=== PATIENT | female | born 1965 | race Hispanic/Latino ===

== ENCOUNTER 2017-06-29 18:40 | Emergency (ER) | payer MEDICARE ==
[~2017-06-29 18:40] MED LIST: LOMO PO; ONDA22I IM; PANT40TA25 PO
[2017-06-29 19:11] LABS: BASOPHILS % (AUTO) 0.5 % (0.0-5.0); EOSINOPHILS % (AUTO) 2.5 % (0.0-8.0); HEMATOCRIT 42.7 % (36-48); LYMPHOCYTES % (AUTO) 33.2 % (21.0-51.0); MEAN CORPUSCULAR HEMOGLOBIN 31.7 pg (27.0-33.0); MEAN CORPUSCULAR HGB CONC 35.3 g/dL (32.0-36.0); MEAN CORPUSCULAR VOLUME 89.9 fL (79-99); MONOCYTES % (AUTO) 7.2 % (3.0-13.0); NEUTROPHILS % (AUTO) 56.6 % (40.0-77.0); PLATELET COUNT (AUTO) 237 K/uL (130-400); RED BLOOD CELL COUNT(AUTO) 4.75 MIL/uL (4.00-5.50); RED CELL DISTRIBUTION WIDTH 13.2 % (11.0-15.5); WHITE BLOOD COUNT (AUTO) 6.2 K/uL (4.8-10.8)
[2017-06-29 19:19] LABS: CREATININE 0.9 mg/dL (0.5-1.5); POTASSIUM 3.5 mmol/L (3.5-5.1)
[2017-06-29 19:24] LABS: BILIRUBIN,TOTAL 0.6 mg/dL (0.2-1.0); TOTAL PROTEIN, SERUM 7.9 g/dL (6.0-8.3)
[2017-06-29] MEDS ORDERED: ONDANSETRON ODT 4 MG TAB ONE (19:32)
[2017-06-29] MEDS ORDERED: LIDOCAINE HCL 2% VISCOUS 15 ML UDCUP ONE (19:33)
[2017-06-29] MEDS ORDERED: MAG HYDROX/AL HYDROX/SIMETH ES 30 ML SUSP UDCUP ONE (19:33)
[2017-06-29 19:44] LABS: APPEARANCE,URINE Clear (CLEAR); BILIRUBIN,URINE Negative (NEGATIVE); COLOR,URINE Yellow (YELLOW); GLUCOSE, URINE (UA) >=1000 mg/dL (NEGATIVE); KETONES,URINE Negative (NEGATIVE); LEUKOCYTE ESTERASE ,URINE Negative (NEGATIVE); NITRATE,URINE Negative (NEGATIVE); OCCULT BLOOD,URINE Negative (NEGATIVE); PROTEIN,URINE Negative (NEGATIVE)
[2017-06-29 19:48] LABS: INR 0.89 (0.85-1.15); PARTIAL THROMBOPLASTIN TIME 23.7 SEC (26.3-35.5); PROTHROMBIN TIME 9.4 SEC (9.6-11.6)
[2017-06-29 20:15] LABS: BACTERIA,URINE Rare /HPF (None Seen); RBC,URINE 0-1 /HPF (0-1); SQUAMOUS EPITHELIAL CELL,UR Few /LPF (0-2); WBC,URINE 0-1 /HPF (0-1)
== END 2017-06-29 20:32 | disposition home or self-care (01) ==
LOC: EDH 18:40
DX: K52.9 Noninfective gastroenteritis and colitis, unspecified (principal); E11.9 Type 2 diabetes mellitus without complications; K21.9 Gastro-esophageal reflux disease without esophagitis; I10 Essential (primary) hypertension; M35.00 Sjogren syndrome, unspecified; Z79.4 Long term (current) use of insulin; Z85.3 Personal history of malignant neoplasm of breast
CPT/HCPCS: 36415; 80053; 81001; 83690; 84484; 85025; 85610; 85730; 93005

== ENCOUNTER → 2017-09-13 | Outpatient (CLI) | payer MEDICARE | END | disposition home or self-care (01) | LOC: RAH 11:07 | PROVIDERS: ATTEND Internal Medicine Gastroenterology | DX: K31.84 Gastroparesis (principal); I10 Essential (primary) hypertension; E11.9 Type 2 diabetes mellitus without complications; E78.5 Hyperlipidemia, unspecified; J44.9 Chronic obstructive pulmonary disease, unspecified; Z79.4 Long term (current) use of insulin | CPT/HCPCS: 78264; A9541 ==

== ENCOUNTER → 2018-04-28 | Outpatient (CLI) | payer MEDICARE | END | disposition home or self-care (01) | LOC: RAH 07:44 | PROVIDERS: ATTEND Internal Medicine | DX: S43 Dislocation and sprain of joints and ligaments of shoulder girdle (principal); M19.012 Primary osteoarthritis, left shoulder; Z91.81 History of falling; X58.XXXS Exposure to other specified factors, sequela | CPT/HCPCS: 73030 ==

== ENCOUNTER 2018-09-03 22:18 | Emergency (ER) | payer MEDICARE ==
[2018-09-03] MEDS ORDERED: DiphenhydrAMINE HCL 50 MG/ML VIAL ONE (23:22)
[2018-09-03] MEDS ORDERED: METHYLPREDNISOLONE SOD SUCC 125MG/2ML VIAL ONE (23:23)
[2018-09-03] MEDS ORDERED: ORPHENADRINE CITRATE 30 MG/ML ML ONE (23:23)
[2018-09-03] MEDS ORDERED: KETOROLAC TROMETHAMINE 30MG/ML ONE (23:24)
[2018-09-03] MEDS ORDERED: LIDOCAINE 5% TOPICAL PATCH TP ONE (23:52)
[2018-09-04] MEDS ORDERED: ONDANSETRON ODT 4 MG TAB ONE (00:31)
[2018-09-04] MEDS ORDERED: HYDROCODONE/ACETAMINOPHEN 10/325 MG TAB ONE (00:31)
== END 2018-09-04 00:53 | disposition home or self-care (01) ==
LOC: EDH 22:18
DX: T14.8XXA Other injury of unspecified body region, initial encounter (principal); M54.6 Pain in thoracic spine; M62.830 Muscle spasm of back; M54.2 Cervicalgia; R51 Headache; E11.9 Type 2 diabetes mellitus without complications; K21.9 Gastro-esophageal reflux disease without esophagitis; I10 Essential (primary) hypertension; Z79.4 Long term (current) use of insulin; Z90.49 Acquired absence of other specified parts of digestive tract; Z91.013 Allergy to seafood; Z85.3 Personal history of malignant neoplasm of breast; X58.XXXA Exposure to other specified factors, initial encounter; Y93.89 Activity, other specified; Y92.89 Other specified places as the place of occurrence of the external cause; Y99.8 Other external cause status
CPT/HCPCS: 96374; 96375; 99283; J1200; J1885; J2360; J2930

== ENCOUNTER 2019-04-16 20:11 | Emergency (ER) | payer MEDICARE ==
[2019-04-16 21:20] LABS: BASOPHILS % (AUTO) 0.6 % (0.0-5.0); EOSINOPHILS % (AUTO) 1.8 % (0.0-8.0); HEMATOCRIT 44.1 % (36-48); LYMPHOCYTES % (AUTO) 24.5 % (21.0-51.0); MEAN CORPUSCULAR HEMOGLOBIN 30.9 pg (27.0-33.0); MEAN CORPUSCULAR HGB CONC 33.5 g/dL (32.0-36.0); MEAN CORPUSCULAR VOLUME 92.2 fL (79-99); MONOCYTES % (AUTO) 7.5 % (3.0-13.0); NEUTROPHILS % (AUTO) 65.6 % (40.0-77.0); PLATELET COUNT (AUTO) 212 K/uL (130-400); RED BLOOD CELL COUNT(AUTO) 4.78 MIL/uL (4.00-5.50); RED CELL DISTRIBUTION WIDTH 13.5 % (11.0-15.5); WHITE BLOOD COUNT (AUTO) 7.5 K/uL (4.8-10.8)
[2019-04-16] MEDS ORDERED: TETANUS/DIPHTHERIA TOXOID [ADULT] 0.5 ML VIAL IM ONE (21:25)
[2019-04-16 21:29] LABS: CREATININE 0.8 mg/dL (0.5-1.5); POTASSIUM 3.9 mmol/L (3.5-5.1)
[2019-04-16] MEDS ORDERED: NEOMY SULF/BACITRA/POLYMYXIN B 1 EACH PACKET TP ONE (21:33)
[2019-04-16 21:34] LABS: ALBUMIN 3.5 g/dL (3.5-5.0); BILIRUBIN,TOTAL 0.5 mg/dL (0.2-1.0); TOTAL PROTEIN, SERUM 7.2 g/dL (6.0-8.3)
[2019-04-16] MEDS ORDERED: OCTYL 2-CYANOACRYLATE 1 EACH TP ONE (22:14)
[2019-04-16 22:42] LABS: APPEARANCE,URINE Clear (CLEAR); BILIRUBIN,URINE Negative (NEGATIVE); COLOR,URINE Yellow (YELLOW); GLUCOSE, URINE (UA) Negative (NEGATIVE); KETONES,URINE Negative (NEGATIVE); LEUKOCYTE ESTERASE ,URINE Negative (NEGATIVE); NITRATE,URINE Negative (NEGATIVE); OCCULT BLOOD,URINE Negative (NEGATIVE); PROTEIN,URINE Negative (NEGATIVE)
== END 2019-04-16 22:53 | disposition home or self-care (01) ==
LOC: EDH 20:11
DX: R55 Syncope and collapse (principal); E11.9 Type 2 diabetes mellitus without complications; S00.81XA Abrasion of other part of head, initial encounter; C50.919 Malignant neoplasm of unspecified site of unspecified female breast; I10 Essential (primary) hypertension; K21.9 Gastro-esophageal reflux disease without esophagitis; M35.00 Sjogren syndrome, unspecified; P03.89 Newborn affected by other specified complications of labor and delivery; Z91.013 Allergy to seafood; Z90.711 Acquired absence of uterus with remaining cervical stump; W19.XXXA Unspecified fall, initial encounter; Y93.9 Activity, unspecified; Y92.9 Unspecified place or not applicable; Y99.9 Unspecified external cause status
CPT/HCPCS: 36415; 70450; 80053; 81003; 85025; 90471; 90714; 93005; 96374

== ENCOUNTER → 2019-12-03 | Outpatient (CLI) | payer MEDICARE | END | disposition home or self-care (01) | LOC: OIH 14:48 | PROVIDERS: ATTEND Internal Medicine | DX: M47.816 Spondylosis without myelopathy or radiculopathy, lumbar region (principal); M54.16 Radiculopathy, lumbar region ==

== ENCOUNTER → 2020-06-26 | Outpatient (CLI) | payer MEDICARE ==
[~2020-06-26] MED LIST changes: -PANT40TA25 PO; +PANT40TA55 PO
== END | disposition home or self-care (01) ==
LOC: RAH 12:30
PROVIDERS: ATTEND Internal Medicine
DX: R06.02 Shortness of breath (principal)
CPT/HCPCS: 71045

== ENCOUNTER → 2020-07-30 | Outpatient (CLI) | payer MEDICARE | END | disposition home or self-care (01) | LOC: OIH 08:52 | PROVIDERS: ATTEND Internal Medicine | DX: R07.9 Chest pain, unspecified (principal) | CPT/HCPCS: 71046 ==

== ENCOUNTER → 2020-11-19 | Outpatient (CLI) | payer MEDICARE | END | disposition home or self-care (01) | LOC: RAH 08:33 | PROVIDERS: ATTEND Internal Medicine | DX: S33.140A Subluxation of L4/L5 lumbar vertebra, initial encounter (principal); M41.84 Other forms of scoliosis, thoracic region; M62.81 Muscle weakness (generalized); X58.XXXA Exposure to other specified factors, initial encounter; Y93.89 Activity, other specified; Y92.89 Other specified places as the place of occurrence of the external cause; Y99.8 Other external cause status | CPT/HCPCS: 72082 ==

== ENCOUNTER → 2021-09-03 | Outpatient (CLI) | payer MEDICARE | END | disposition home or self-care (01) | LOC: OIH 14:44 | PROVIDERS: ATTEND Internal Medicine | DX: S22.080A Wedge compression fracture of T11-T12 vertebra, initial encounter for closed fracture (principal); S22.070A Wedge compression fracture of T9-T10 vertebra, initial encounter for closed fracture; S22.060A Wedge compression fracture of T7-T8 vertebra, initial encounter for closed fracture; M47.24 Other spondylosis with radiculopathy, thoracic region; M25.78 Osteophyte, vertebrae; M47.26 Other spondylosis with radiculopathy, lumbar region; M41.86 Other forms of scoliosis, lumbar region; Z90.49 Acquired absence of other specified parts of digestive tract; X58.XXXA Exposure to other specified factors, initial encounter; Y93.89 Activity, other specified; Y92.89 Other specified places as the place of occurrence of the external cause; Y99.8 Other external cause status | CPT/HCPCS: 72070; 72100 ==

== ENCOUNTER → 2021-11-26 | Outpatient (CLI) | payer MEDICARE | END | disposition home or self-care (01) | LOC: RAH 07:52 | PROVIDERS: ATTEND Neurological Surgery | DX: M51.36 Other intervertebral disc degeneration, lumbar region (principal); M48.061 Spinal stenosis, lumbar region without neurogenic claudication; M43.16 Spondylolisthesis, lumbar region | CPT/HCPCS: 72148 ==

== ENCOUNTER → 2022-10-11 | Outpatient (CLI) | payer MEDICARE | END | disposition home or self-care (01) | LOC: RAH 08:39 | PROVIDERS: ATTEND Internal Medicine Gastroenterology | DX: K59.04 Chronic idiopathic constipation (principal) | CPT/HCPCS: 74018 ==

== ENCOUNTER → 2023-06-23 | Outpatient (CLI) | payer MEDICARE ==
[~2023-06-23] MED LIST changes: +ALBUHFA IH; +ANASTRAZOLE PO; +BISA-151 PO; +BUDE10.2 IH; +DICLOFENAC SODIUM TP; +FAMO40TA7 PO; +INSU100V12 SQ; +LACT20PA6 PO; -LOMO PO; +NALO25TA4 PO; -ONDA22I IM
== END | disposition home or self-care (01) ==
LOC: RAH 08:25
PROVIDERS: ATTEND Internal Medicine
DX: R11.10 Vomiting, unspecified (principal)
CPT/HCPCS: 74240

== ENCOUNTER 2023-07-01 20:31 | Emergency (ER) | payer MEDICARE ==
[~2023-07-01] VITALS: Ht 157.5 cm; Wt 59.9 kg
[2023-07-01] MEDS ORDERED: DEXAMETHASONE SOD PHOSPHATE 4 MG/ML 1ML VIAL IVP ONE (21:00)
[2023-07-01] MEDS ORDERED: 0.9%NACL 1000ML 1,000 ML IV ONE (21:00)
[2023-07-01] MEDS ORDERED: FAMOTIDINE 20MG VIAL IV ONE (21:00)
[2023-07-01] MEDS ORDERED: DiphenhydrAMINE HCL 50 MG/ML VIAL IV ONE (21:00)
[2023-07-01 21:07] LABS: BASOPHILS # (AUTO) 0.03 K/uL (0.00-0.20); BASOPHILS % (AUTO) 0.5 % (0.0-5.0); EOSINOPHILS # (AUTO) 0.16 K/uL (0.00-0.70); EOSINOPHILS % (AUTO) 2.8 % (0.0-8.0); HEMATOCRIT 37.5 % (36-48); IMMATURE GRANULOCYTE ABSOLUTE 0.02 K/uL (0-1); LYMPHOCYTES # (AUTO) 1.8 K/uL (1.0-4.8); LYMPHOCYTES % (AUTO) 31.9 % (21.0-51.0); MEAN CORPUSCULAR HEMOGLOBIN 30.8 pg (27.0-33.0); MEAN CORPUSCULAR HGB CONC 33.3 g/dL (32.0-36.0); MEAN CORPUSCULAR VOLUME 92.4 fL (79-99); MONOCYTES # (AUTO) 0.4 K/uL (0.1-1.0); MONOCYTES % (AUTO) 7.5 % (3.0-13.0); NEUTROPHILS # (AUTO) 3.2 K/uL (1.8-7.7); NEUTROPHILS % (AUTO) 56.9 % (40.0-77.0); PLATELET COUNT (AUTO) 220 K/uL (130-400); RED BLOOD CELL COUNT(AUTO) 4.06 MIL/uL (4.00-5.50); RED CELL DISTRIBUTION WIDTH 13.2 % (11.0-15.5); WHITE BLOOD COUNT (AUTO) 5.6 K/uL (4.8-10.8)
[2023-07-01 21:20] LABS: CREATININE 0.8 mg/dL (0.5-1.5); POTASSIUM 3.9 mmol/L (3.5-5.1)
[2023-07-01 21:22] LABS: ALBUMIN 3.6 g/dL (3.5-5.0); BILIRUBIN,TOTAL 0.4 mg/dL (0.2-1.0); TOTAL PROTEIN, SERUM 6.7 g/dL (6.0-8.3)
[2023-07-01 22:53] LABS: APPEARANCE,URINE CLEAR (CLEAR); BILIRUBIN,URINE NEGATIVE (NEGATIVE); COLOR,URINE COLORLESS (YELLOW); GLUCOSE, URINE (UA) NEGATIVE (NEGATIVE); KETONES,URINE NEGATIVE (NEGATIVE); LEUKOCYTE ESTERASE ,URINE NEGATIVE Leu/uL (NEGATIVE); NITRATE,URINE NEGATIVE (NEGATIVE); PH,URINE 6.5 (5.0-8.0); PROTEIN,URINE NEGATIVE (NEGATIVE); UROBILINOGEN,URINE 0.2 mg/dL (0.2-1.0)
[2023-07-01 23:04] LABS: ADD UA MICROSCOPIC YES
[2023-07-01] MEDS ORDERED: FAMO40TA75 PO (23:06)
[2023-07-01] MEDS ORDERED: METH4TAB3 PO (23:06)
[2023-07-01] MEDS ORDERED: HYDR-3421 PO (23:06)
[2023-07-01 23:09] VITALS: BP 152/82; PULSE 96; RESP 18; O2SAT 100
[2023-07-01 23:09] LABS: SQUAMOUS EPITHELIAL CELL,UR RARE /HPF (0-2); WBC,URINE 0-1 /HPF (0-1)
== END 2023-07-01 23:21 | disposition home or self-care (01) ==
LOC: EDH 20:31
DX: L50.0 Allergic urticaria (principal); I10 Essential (primary) hypertension; F41.9 Anxiety disorder, unspecified; E78.00 Pure hypercholesterolemia, unspecified; F32.A Depression, unspecified; Z79.4 Long term (current) use of insulin; Z79.51 Long term (current) use of inhaled steroids; Z79.899 Other long term (current) drug therapy; Z85.3 Personal history of malignant neoplasm of breast
CPT/HCPCS: 99284; 96374; 96375; 80053; 83690; 85025; 81001; 36415; J1100; J1200; J3490; J7030

== ENCOUNTER 2023-09-15 14:11 | Emergency (ER) | payer MEDICARE ==
[~2023-09-15] VITALS: Ht 157.5 cm; Wt 57.2 kg
[~2023-09-15 14:11] MED LIST changes: +FAMO40TA75 PO; +HYDR-3421 PO; +METH4TAB3 PO
[2023-09-15 15:42] LABS: APPEARANCE,URINE CLEAR (CLEAR); BILIRUBIN,URINE NEGATIVE (NEGATIVE); COLOR,URINE LIGHT-YELLOW (YELLOW); GLUCOSE, URINE (UA) NEGATIVE (NEGATIVE); KETONES,URINE NEGATIVE (NEGATIVE); LEUKOCYTE ESTERASE ,URINE NEGATIVE Leu/uL (NEGATIVE); NITRATE,URINE NEGATIVE (NEGATIVE); OCCULT BLOOD,URINE NEGATIVE (NEGATIVE); PH,URINE 5.5 (5.0-8.0); PROTEIN,URINE NEGATIVE (NEGATIVE); UROBILINOGEN,URINE 0.2 mg/dL (0.2-1.0)
[2023-09-15 15:43] LABS: ADD UA MICROSCOPIC YES
[2023-09-15 15:47] LABS: MUCUS,URINE RARE LPF (None Seen); RBC,URINE 0-1 /HPF (0-1); SQUAMOUS EPITHELIAL CELL,UR FEW /HPF (0-2)
[2023-09-15 16:26] LABS: HEMATOCRIT 36.4 % (36-48); MEAN CORPUSCULAR HEMOGLOBIN 26.7 pg (27.0-33.0); MEAN CORPUSCULAR HGB CONC 31.6 g/dL (32.0-36.0); MEAN CORPUSCULAR VOLUME 84.5 fL (79-99); PLATELET COUNT (AUTO) 381 K/uL (130-400); RED BLOOD CELL COUNT(AUTO) 4.31 MIL/uL (4.00-5.50); RED CELL DISTRIBUTION WIDTH 24.3 % (11.0-15.5); WHITE BLOOD COUNT (AUTO) 7.3 K/uL (4.8-10.8)
[2023-09-15 16:32] LABS: BASOPHILS # (AUTO) 0.04 K/uL (0.00-0.20); BASOPHILS % (AUTO) 0.6 % (0.0-5.0); EOSINOPHILS # (AUTO) 0.02 K/uL (0.00-0.70); EOSINOPHILS % (AUTO) 0.3 % (0.0-8.0); IMMATURE GRANULOCYTE ABSOLUTE 0.08 K/uL (0-1); LYMPHOCYTES # (AUTO) 0.3 K/uL (1.0-4.8); MONOCYTES # (AUTO) 0.1 K/uL (0.1-1.0); MONOCYTES % (AUTO) 1.8 % (3.0-13.0); NEUTROPHILS # (AUTO) 6.7 K/uL (1.8-7.7); NEUTROPHILS % (AUTO) 92.2 % (40.0-77.0)
[2023-09-15 17:00] VITALS: BP 173/80; PULSE 73; RESP 12; O2SAT 99
[2023-09-15 17:21] LABS: BILIRUBIN,TOTAL 0.4 mg/dL (0.2-1.0); CREATININE 0.9 mg/dL (0.5-1.0); TOTAL PROTEIN, SERUM 7.7 g/dL (6.0-8.3)
[2023-09-15 17:24] LABS: POTASSIUM 2.6 mmol/L (3.5-5.1)
[2023-09-15] MEDS: KCL 20 MEQ ERTAB PO ONE (17:34)
== END 2023-09-15 17:56 | disposition home or self-care (01) ==
LOC: EDH 14:11
DX: R33.9 Retention of urine, unspecified (principal); E11.9 Type 2 diabetes mellitus without complications; I10 Essential (primary) hypertension; M19.90 Unspecified osteoarthritis, unspecified site; Z79.4 Long term (current) use of insulin; Z79.51 Long term (current) use of inhaled steroids; Z79.899 Other long term (current) drug therapy
CPT/HCPCS: 36415; 51702; 80053; 81001; 83605; 85025

== ENCOUNTER 2023-11-08 00:41 | Emergency (ER) | payer MEDICARE ==
[~2023-11-08] VITALS: Ht 157.5 cm; Wt 54.9 kg
[2023-11-08 02:07] LABS: BASOPHILS # (AUTO) 0.02 K/uL (0.00-0.20); BASOPHILS % (AUTO) 0.4 % (0.0-5.0); EOSINOPHILS # (AUTO) 0.25 K/uL (0.00-0.70); EOSINOPHILS % (AUTO) 4.4 % (0.0-8.0); HEMATOCRIT 38.3 % (36-48); IMMATURE GRANULOCYTE ABSOLUTE 0.01 K/uL (0-1); LYMPHOCYTES # (AUTO) 1.5 K/uL (1.0-4.8); LYMPHOCYTES % (AUTO) 26.1 % (21.0-51.0); MEAN CORPUSCULAR HEMOGLOBIN 30.8 pg (27.0-33.0); MEAN CORPUSCULAR HGB CONC 32.4 g/dL (32.0-36.0); MONOCYTES # (AUTO) 0.5 K/uL (0.1-1.0); MONOCYTES % (AUTO) 8.7 % (3.0-13.0); NEUTROPHILS # (AUTO) 3.4 K/uL (1.8-7.7); NEUTROPHILS % (AUTO) 60.2 % (40.0-77.0); PLATELET COUNT (AUTO) 193 K/uL (130-400); RED BLOOD CELL COUNT(AUTO) 4.03 MIL/uL (4.00-5.50); RED CELL DISTRIBUTION WIDTH 12.7 % (11.0-15.5); WHITE BLOOD COUNT (AUTO) 5.7 K/uL (4.8-10.8)
[2023-11-08] MEDS: 0.9% NACL 500ML IV.SOLN 500 ML IV ONE (02:09)
[2023-11-08] MEDS: PANTOPRAZOLE 40 MG/VIAL IVP ONE (02:10)
[2023-11-08] MEDS: ONDANSETRON 4MG INJ IVP ONE (02:10)
[2023-11-08] MEDS: MORPHINE 2 MG SYG IVP ONE (02:10)
[2023-11-08 02:27] LABS: POTASSIUM 4.1 mmol/L (3.5-5.1)
[2023-11-08 02:31] LABS: ALBUMIN 3.6 g/dL (3.5-5.0); BILIRUBIN,TOTAL 0.5 mg/dL (0.2-1.0); TOTAL PROTEIN, SERUM 6.6 g/dL (6.0-8.3)
[2023-11-08] MEDS: MORPHINE 4 MG SYG IVP ONE (05:43)
[2023-11-08] MEDS ORDERED: MAGN296S73 PO (06:27)
[2023-11-08 06:30] VITALS: BP 142/82; PULSE 74; RESP 16; O2SAT 100
== END 2023-11-08 07:04 | disposition home or self-care (01) ==
LOC: EDH 00:41
DX: K21.9 Gastro-esophageal reflux disease without esophagitis (principal); R10.9 Unspecified abdominal pain; E11.43 Type 2 diabetes mellitus with diabetic autonomic (poly)neuropathy; E86.0 Dehydration; R11.2 Nausea with vomiting, unspecified; E83.42 Hypomagnesemia; K31.84 Gastroparesis; Z79.4 Long term (current) use of insulin; Z79.51 Long term (current) use of inhaled steroids; Z79.899 Other long term (current) drug therapy; Z85.3 Personal history of malignant neoplasm of breast; Z90.710 Acquired absence of both cervix and uterus; Z90.49 Acquired absence of other specified parts of digestive tract
CPT/HCPCS: 99285; 74176; 96374; 96375; 80053; 83690; 85025; 36415; 96376; J7040; J2270 ×2; J2405; C9113

== ENCOUNTER → 2024-01-18 | Outpatient (CLI) | payer OTHER ==
[~2024-01-18] MED LIST changes: +MAGN296S73 PO
== END | disposition home or self-care (01) ==
LOC: RAH 08:39
PROVIDERS: ATTEND Internal Medicine Cardiovascular Disease
DX: Z13.6 Encounter for screening for cardiovascular disorders (principal)
CPT/HCPCS: 75571

== ENCOUNTER 2024-01-22 17:13 | Emergency (ER) | payer MEDICARE ==
[~2024-01-22] VITALS: Ht 157.5 cm; Wt 53.1 kg
[2024-01-22] MEDS: ONDANSETRON 4MG INJ IVP ONE (18:27)
[2024-01-22] MEDS: FAMOTIDINE 20MG VIAL IV ONE (18:27)
[2024-01-22] MEDS: morPHINE 2 MG SYG IVP ONE ×2 (18:27→21:56)
[2024-01-22 20:22] LABS: BASOPHILS # (AUTO) 0.01 K/uL (0.00-0.20); BASOPHILS % (AUTO) 0.2 % (0.0-5.0); EOSINOPHILS # (AUTO) 0.28 K/uL (0.00-0.70); EOSINOPHILS % (AUTO) 5.7 % (0.0-8.0); HEMATOCRIT 35.5 % (36-48); IMMATURE GRANULOCYTE ABSOLUTE 0.01 K/uL (0-1); LYMPHOCYTES # (AUTO) 1.4 K/uL (1.0-4.8); LYMPHOCYTES % (AUTO) 27.7 % (21.0-51.0); MEAN CORPUSCULAR HEMOGLOBIN 30.9 pg (27.0-33.0); MEAN CORPUSCULAR HGB CONC 32.7 g/dL (32.0-36.0); MEAN CORPUSCULAR VOLUME 94.4 fL (79-99); MONOCYTES # (AUTO) 0.4 K/uL (0.1-1.0); MONOCYTES % (AUTO) 7.1 % (3.0-13.0); NEUTROPHILS # (AUTO) 2.9 K/uL (1.8-7.7); NEUTROPHILS % (AUTO) 59.1 % (40.0-77.0); PLATELET COUNT (AUTO) 211 K/uL (130-400); RED BLOOD CELL COUNT(AUTO) 3.76 MIL/uL (4.00-5.50); RED CELL DISTRIBUTION WIDTH 12.7 % (11.0-15.5)
[2024-01-22 20:34] LABS: CREATININE 0.9 mg/dL (0.5-1.0)
[2024-01-22 20:38] LABS: ALBUMIN 2.9 g/dL (3.5-5.0); BILIRUBIN,TOTAL 0.4 mg/dL (0.2-1.0)
[2024-01-22] MEDS ORDERED: ONDA-243 PO (20:56)
[2024-01-22] MEDS ORDERED: FAMO-136 PO (20:56)
[2024-01-22] MEDS ORDERED: KETO10TA2 PO (20:56)
[2024-01-22] MEDS: ketOROlac 15MG/ML VIAL (15MG/ML) IV ONE (21:56)
[2024-01-22 22:21] VITALS: BP 144/86; PULSE 65; RESP 16; TEMP 98.3; O2SAT 100
== END 2024-01-22 22:39 | disposition home or self-care (01) ==
LOC: EDH 17:13
DX: R10.30 Lower abdominal pain, unspecified (principal); E11.9 Type 2 diabetes mellitus without complications; E78.00 Pure hypercholesterolemia, unspecified; I10 Essential (primary) hypertension; K31.84 Gastroparesis; Z79.4 Long term (current) use of insulin; Z79.899 Other long term (current) drug therapy; Z88.8 Allergy status to other drugs, medicaments and biological substances; Z98.890 Other specified postprocedural states
CPT/HCPCS: 99285; 74176; 96374; 96375; 80053; 83690; 85025; 36415; 96376; 84145; J2270 ×2; J2405; J1885

== ENCOUNTER 2024-04-22 11:11 | Emergency (ER) | payer MEDICARE ==
[~2024-04-22] VITALS: Ht 157.5 cm; Wt 52.2 kg
[~2024-04-22 11:11] MED LIST changes: +FAMO-136 PO; +KETO10TA2 PO; +ONDA-243 PO
--- NOTE | 2024-04-22 11:20 | ERN ---
ED Note History of Present Illness Stated Complaint: RT LEG PAIN Chief Complaint: Lower Extremity Pain/Injury Time Seen by MD: 11:13 Dictation: PATIENT IS A 58-YEAR-OLD FEMALE HERE WITH COMPLAINTS OF A SUDDEN ONSET OF RIGHT FOOT PAIN THAT RADIATES TIP TO THE RIGHT CALF ONSET WAS 1 HOUR PRIOR TO ARRIVAL. SHE STATES SHE WAS RIDING IN A CAR WAS GOING WHEN SHE FELT LIKE SHE HAD POSSIBLY A CRAMP IN HER LEG. SHE SAID WHEN SHE GOT OUT TO WALK SHE SAID IT GOT BETTER, THEN IT CAME BACK WORSE AND NOW IS IN THE RIGHT CALF. NEURO VASCULAR CMS INTACT TO RIGHT LEG DISTALLY SHE DOES HAVE A HISTORY OF DIABETES HYPERTENSION CHOLESTEROL, CURRENT BLOOD SUGAR PER HER MONITOR HIS 258. SHE STATES I MIGHT HAVE NEUROPATHY. Allergies: Coded Allergies: ceftriaxone (Unverified Allergy, Unknown, HIVES, 04/22/24) shrimp (Unverified Allergy, Unknown, 03/26/16) Home Meds Active Scripts Famotidine (Pepcid) 20 Mg Tablet, 20 MG PO BID for 7 Days, #14 TAB Prov:CLAUDE VELASQUEZ 01/22/24 Ondansetron (Ondansetron Odt) 4 Mg Tab.rapdis, 4 MG PO BID for 7 Days, #14 TAB Prov:CLAUDE VELASQUEZ 01/22/24 Ketorolac Tromethamine (Ketorolac Tromethamine) 10 Mg Tablet, 10 MG PO BID for 5 Days, #10 TAB Prov:CLAUDE VELASQUEZ 01/22/24 Magnesium Citrate (Magnesium Citrate) 296 Ml Solution, 296 ML PO DAILY for Constipation for 30 Days, #1500 ML Prov:NORIS ORELLANA MD 11/08/23 Famotidine (Pepcid) 40 Mg Tablet, 40 MG PO DAILY for 10 Days, #10 TAB Prov:KEV CORNELIUS 07/01/23 Hydroxyzine HCl (Hydroxyzine HCl) 25 Mg Tablet, 25 MG PO BID for 5 Days, #10 TAB Prov:KEV CORNELIUS 07/01/23 Methylprednisolone (Medrol) 4 Mg Tab.ds.pk, 4 MG PO AD for 5 Days, #1 PACK Prov:KEV CORNELIUS 07/01/23 Reported Medications Insulin Detemir (Levemir) 100 Unit/Ml Vial, 12 UNIT SQ DAILY, VIAL 02/16/23 [Anastrazole] No Conflict Check, 1 MG PO DAILY 02/16/23 Famotidine (Famotidine) 40 Mg Tablet, 40 MG PO HS, TAB 02/16/23 Lactulose (Kristalose) 20 Gram Packet, 20 GM PO BID, PKT 02/16/23 Naloxegol Oxalate (Movantik) 25 Mg Tablet, 25 MG PO HS, TAB 02/16/23 Bisacodyl (Bisacodyl) 5 Mg Tablet.dr, 5 MG PO DAILY, TAB 02/16/23 [Diclofenac Sodium] No Conflict Check, 1 APPL TP 4-6 X DAILY 02/16/23 Budesonide/Formoterol Fumarate (Symbicort 160-4.5 Mcg Inhaler) 160 Mcg-4.5 Mcg/Actuation Hfa.aer.ad, 2 PUFF IH BID PRN for SHORTNESS OF BREATH 02/16/23 Albuterol Sulfate (Ventolin Hfa/Proventil Hfa/Proair Hfa) 90 Mcg Puff, 2 PUFF IH 4-6 X DAILY PRN for SHORTNESS OF BREATH, INHALER 02/16/23 Pantoprazole Sodium (Protonix) 40 Mg Ectab, 40 MG PO DAILY, TAB.EC 03/26/16 Past Medical History Past Medical History: Cancer, Diabetes-Type II, High Cholesterol, Hypertension Additional Past Medical Hx: BREAST CA Surgical History: Other, Surgical History Other: LUNG REMOVAL, CARPUTUNEL, GASTRIC STIMULATOR, LOOP RECORDER PSYCH History: no pertinent psych hx Family History: Negative Social History: Negative History: Not Applicable RN Note Reviewed/Agreed w/PFSH: Yes Review of System Dictation CONSTITUTIONAL: NEGATIVE EXCEPT FOR HPI HEAD/FACE: NEGATIVE EXCEPT FOR HPI EENT: NEGATIVE EXCEPT FOR HPI RESPIRATORY: NEGATIVE EXCEPT FOR HPI GASTROINTESTINAL/ABDOMINAL: NEGATIVE EXCEPT FOR HPI GENITOURINARY: NEGATIVE EXCEPT FOR HPI MUSCULOSKELETAL: NEGATIVE EXCEPT FOR HPI RIGHT FOOT PAIN THAT RADIATES TO RIGHT CALF TENDERNESS INTEGUMENTARY: NEGATIVE EXCEPT FOR HPI NEUROLOGICAL/PSYCH: NEGATIVE EXCEPT FOR HPI HEMATOLOGIC/LYMPHATIC: NEGATIVE EXCEPT FOR HPI ALL SYSTEMS NEGATIVE, EXCEPT NOTED ABOVE. 13 POINT REVIEW OF SYSTEMS ASSESSED AND ALL NEGATIVE EXCEPT FOR ABOVE. Initial Vital Sign VS Vital Signs Date Time Temp Pulse Resp B/P (MAP) Pulse Ox O2 Delivery O2 Flow Rate FiO2 04/22/24 11:13 98.2 90 18 179/89 97 Room Air 0 04/22/24 11:45 21 Physical Exam Dictation VITAL SIGNS REVIEWED GENERAL APPEARANCE: ALERT, ORIENTED X 3, MODERATE ACUTE DISTRESS, WELL DEVELOPED, NOURISHED. HEAD AND FACE: NON-TRAUMATIC. EYES: PERRL, PINK CONJUNCTIVAS, EYELID NO TRAUMA, ANTERIOR CHAMBER WITH ARCUS SENILIS. EARS: PINNAS INTACT AND NO SIGNS OF TRAUMA OR ERYTHEMA EAR CANALS CLEAR AND NO DISCHARGE TM NO ERYTHEMA NOSE: NO DISCHARGE, NO BLEEDING. OROPHARYNX: MOUTH NORMAL, TONGUE PINK, PHARYNX CLEAR,NO ERYTHEMA, TONSILS NO EXUDATES, NO ABSCESSES NOTED, MUCOUS MEMBRANE MOIST NECK: SUPPLE, NON-TENDER, NO THYROMEGALY, NO MASSES, NO JVD, NO BRUITS BREAST:DEFERRED CHEST:NO TENDERNESS, NO CREPITUS, NO PARADOXICAL MOVEMENT, NO RETRACTIONS LUNGS:CLEAR, WELL-VENTILATED, SYMMETRIC, NO RALES, NO WHEEZING, NO RHONCHI, NO STRIDOR, GOOD BREATH SOUNDS BILATERALLY HEART: REGULAR RATE, REGULAR RHYTHM, NO MURMUR, NO GALLOPS VASCULAR: NO PERIPHERAL EDEMA, ABDOMEN: SOFT, POSITIVE BOWEL SOUNDS, NONDISTENDED, NO GUARDING, NONTENDER, NO REBOUND, NO MASSES NO HEPATOMEGALY, NO SPLENOMEGALY, NO TURNER'S SIGN, NO HERNIAS. RECTAL: DEFERRED GENITAL: DEFERRED NEUROLOGICAL: NORMAL SPEECH, MOTOR FUNCTION INTACT, SENSORY FUNCTION INTACT MUSCULOSKELETAL: NECK NONTENDER, FULL RANGE OF MOTION, BACK NONTENDER, FULL RANGE OF MOTION, EXTREMITIES: RIGHT CALF TENDERNESS WITHOUT SWELLING. FULL RANGE OF MOTION SKIN IS INTACT PULSES PALPABLE SKIN: COLOR PINK, DRY, NO TURGOR, NO RASH, NO LACERATIONS, NO ABRASIONS, NO CONTUSIONS. LYMPHATIC: DEFERRED Results (Laboratory/Radiology) Laboratory/Radiology Laboratory Tests Test 04/22/24 11:34 White Blood Count 4.9 K/uL (4.8-10.8) Red Blood Count 4.42 MIL/uL (4.00-5.50) Hemoglobin 13.3 g/dL (12.0-16.0) Hematocrit 40.9 % (36-48) Mean Corpuscular Volume 92.5 fL (79-99) Mean Corpuscular Hemoglobin 30.1 pg (27.0-33.0) Mean Corpuscular Hemoglobin Concent 32.5 g/dL (32.0-36.0) Red Cell Distribution Width 12.9 % (11.0-15.5) Platelet Count 232 K/uL (130-400) Mean Platelet Volume 10.1 fL (7.5-10.5) Immature Granulocyte % (Auto) 0.2 % (0-1) Neutrophils (%) (Auto) 62.9 % (40.0-77.0) Lymphocytes (%) (Auto) 24.8 % (21.0-51.0) Monocytes (%) (Auto) 7.8 % (3.0-13.0) Eosinophils (%) (Auto) 3.9 % (0.0-8.0) Basophils (%) (Auto) 0.4 % (0.0-5.0) Neutrophils # (Auto) 3.1 K/uL (1.8-7.7) Lymphocytes # (Auto) 1.2 K/uL (1.0-4.8) Monocytes # (Auto) 0.4 K/uL (0.1-1.0) Eosinophils # (Auto) 0.19 K/uL (0.00-0.70) Basophils # (Auto) 0.02 K/uL (0.00-0.20) Absolute Immature Granulocyte (auto 0.01 K/uL (0-1) Nucleated Red Blood Cells 0.0 % (0.0-0.19) Sodium Level 138 mmol/L (136-145) Potassium Level 4.2 mmol/L (3.5-5.1) Chloride Level 105 mmol/L (101-111) Carbon Dioxide Level 32 mmol/L (21-32) Blood Urea Nitrogen 17 mg/dL (7-18) Creatinine 0.9 mg/dL (0.5-1.0) Glomerular Filtration Rate Calc 74 mL/min (>90) Random Glucose 249 mg/dL (70-105) H Total Calcium 8.9 mg/dL (8.5-10.1) US VENOUS DOPPLER UNILATERAL INDICATION: Swelling. RIGHT CALF PAIN SWELLING TECHNIQUE: Real-time venous Doppler ultrasound was performed using B mode, color flow and spectral analysis. FINDINGS: The visualized greater saphenous junction, common femoral, deep femoral, superficial femoral, popliteal and posterior tibial veins demonstrate normal compressibility and flow. No DVT is identified. IMPRESSION: No evidence of DVT in the visualized right extremity. Labs Reviewed?: Yes ED Course ED Course Orders Procedure Category Date Status Time Us Venous Doppler US 04/22/24 Resulted Unilateral 11:16 Acetaminophen With PHA 04/22/24 Complete Codeine (Tylenol-Code 11:30 Cbc With Differential LAB 04/22/24 Complete 11:16 Basic Metabolic Panel LAB 04/22/24 Complete 11:16 Current Medications Medications (Trade) Dose Ordered Sig/Laurie Route PRN Reason Start Time Stop Time Status Last Admin Dose Admin Acetaminophen/ Codeine Phosphate (TYLenol-coDEINE TAB) 2 tab ONCE ONCE PO 04/22/24 11:30 04/22/24 11:31 DC 04/22/24 11:37 Vital Signs Date Time Temp Pulse Resp B/P (MAP) Pulse Ox O2 Delivery O2 Flow Rate FiO2 04/22/24 11:45 97.7 92 18 96 Room Air* 0 21 04/22/24 11:13 98.2 90 18 179/89 97 Room Air 0 TWELVE 50, PATIENT WAS DIAGNOSED WITH DIABETIC NEUROPATHY AFTER NEGATIVE WORKUP TO INCLUDE ULTRASOUND SHE WILL BE SENT HOME WITH T3 TO SEE HER DOCTOR TOMORROW OR THE NEXT DAY Medical Decision Making MDM MDM: DIFFERENTIAL DIAGNOSIS: ELECTROLYTE IMBALANCE/DEHYDRATION/MUSCLE PAIN/DVT RATIONALE: TESTS CONSIDERED AND ORDERED SECONDARY TO SHARED DECISION MAKING INCLUDE: RADIOLOGY/LABS PREVIOUS OUTSIDE RECORDS REVIEWED: OLD ER VISITS. REVIEWED RISK OF COMPLICATION AND/OR MORBIDITY OR MORTALITY OF PATIENT MANAGEMENT: NONE MEDICATIONS-PER MEDICATION RECONCILIATION SEE NURSE'S NEED FOR HOSPITALIZATION: PATIENT DOES NOT MEET CRITERIA FOR HOSPITALIZATION. NOTES NEED FOR EMERGENCY MAJOR/MINOR SURGERY: NO THERE ARE NO SOCIAL CONCERNS WITH THIS PATIENT. PRESCRIPTION DRUG MANAGEMENT TYLENOL WITH CODEINE PRESCRIPTIONS WILL INCLUDE SYMPTOMATIC CARE PATIENT'S PRIOR EXTERNAL MEDICAL RECORDS FROM OTHER ER VISITS WERE REVIEWED BY ME INDICATED. PRIOR TESTING AND RESULTS FROM PREVIOUS VISITS WERE REVIEWED. PRIOR TESTS WERE TAKEN INTO ACCOUNT WITH MEDICAL DECISION MAKING AND RESOURCE UTILIZATION, INDEPENDENT HISTORIAN/HISTORIANS WERE USED TO OBTAIN COMPLETE MEDICAL HISTORY. I INDEPENDENTLY INTERPRETED THE TEST THAT WERE PERFORMED, RESULTS WERE REVIEWED BY ME AND CONSIDERED FINDINGS ON RADIOLOGY IF ORDERED. MEDICAL MANAGEMENT AND EXAMINATION INTERPRETATION DISCUSSIONS WERE HAD BY ME WITH OTHER QUALIFIED HEALTHCARE PROFESSIONALS INDICATED FOR THE PATIENT'S CARE. DX & DISP Disposition: Discharge Departure Impression: Primary Impression: Diabetic neuropathy Additional Impression: Uncontrolled diabetes mellitus Condition: Stable Scripts Gabapentin (Gabapentin) 800 Mg Tablet 1 TAB PO TID for 10 Days, #30 TAB 0 Refills Prov: VIVIEN FRANKLIN NP 04/22/24 Additional Instructions: FOLLOW-UP WITH PRIMARY CARE PROVIDER IN 1 TO 2 DAYS. TAKE MEDICATIONS DIRECTED HERE IN THE EMERGENCY ROOM. OKAY TO CONTINUE HOME MEDICATIONS UNLESS OTHERWISE DISCUSSED DURING YOUR VISIT IN THE EMERGENCY ROOM TODAY. RETURN TO YOUR NEAREST EMERGENCY ROOM IF SYMPTOMS WORSEN OR IF THERE IS NO IMPROVEMENT. CALL 911 IF YOU NEED IMMEDIATE ASSISTANCE. TAKE TYLENOL OR MOTRIN LOCK-[id number] NEEDED AND IF NO CONTRAINDICATIONS ARE PRESENT. INCREASE ORAL HYDRATION. A WOUND CULTURE OR URINE CULTURE WAS ORDERED HERE IN THE EMERGENCY ROOM DEPARTMENT PLEASE FOLLOW-UP WITH PRIMARY CARE PROVIDER AND ADVISE THEM TO GET REPEAT PORTS FROM OUR FACILITY. IF YOU HAD ANY RAMU WRAP/SPLINTS THAT WERE APPLIED HERE, PLEASE DO NOT REMOVE THEM UNTIL YOU SEE YOUR PRIMARY CARE OR SPECIALTY. CONTINUE YOUR HYDROCODONE THEY WERE ISSUED TO ON 04/11/2024. SEE YOUR PRIMARY CARE DOCTOR IN 1-2 DAYS FOR DIABETIC NEUROPATHY MANAGEMENT Referrals: BLESSING PRIDE MD (PCP) Time of Disposition: 12:53 I have reviewed the case, and I agree with, Diagnosis and Plan VIVIEN FRANKLIN NP Apr 22, 2024 11:20
[2024-04-22] MEDS: acetaMINOPHEN WITH coDEINE 1 TAB TAB PO ONE (11:37)
[2024-04-22 11:40] LABS: BASOPHILS # (AUTO) 0.02 K/uL (0.00-0.20); BASOPHILS % (AUTO) 0.4 % (0.0-5.0); EOSINOPHILS # (AUTO) 0.19 K/uL (0.00-0.70); EOSINOPHILS % (AUTO) 3.9 % (0.0-8.0); HEMATOCRIT 40.9 % (36-48); IMMATURE GRANULOCYTE ABSOLUTE 0.01 K/uL (0-1); LYMPHOCYTES # (AUTO) 1.2 K/uL (1.0-4.8); LYMPHOCYTES % (AUTO) 24.8 % (21.0-51.0); MEAN CORPUSCULAR HEMOGLOBIN 30.1 pg (27.0-33.0); MEAN CORPUSCULAR HGB CONC 32.5 g/dL (32.0-36.0); MEAN CORPUSCULAR VOLUME 92.5 fL (79-99); MONOCYTES # (AUTO) 0.4 K/uL (0.1-1.0); MONOCYTES % (AUTO) 7.8 % (3.0-13.0); NEUTROPHILS # (AUTO) 3.1 K/uL (1.8-7.7); NEUTROPHILS % (AUTO) 62.9 % (40.0-77.0); PLATELET COUNT (AUTO) 232 K/uL (130-400); RED BLOOD CELL COUNT(AUTO) 4.42 MIL/uL (4.00-5.50); RED CELL DISTRIBUTION WIDTH 12.9 % (11.0-15.5); WHITE BLOOD COUNT (AUTO) 4.9 K/uL (4.8-10.8)
[2024-04-22 11:48] LABS: CREATININE 0.9 mg/dL (0.5-1.0); POTASSIUM 4.2 mmol/L (3.5-5.1)
--- NOTE | 2024-04-22 12:33 | HMCIMG ---
US VENOUS DOPPLER UNILATERAL INDICATION: Swelling. RIGHT CALF PAIN SWELLING TECHNIQUE: Real-time venous Doppler ultrasound was performed using B mode, color flow and spectral analysis. FINDINGS: The visualized greater saphenous junction, common femoral, deep femoral, superficial femoral, popliteal and posterior tibial veins demonstrate normal compressibility and flow. No DVT is identified. IMPRESSION: No evidence of DVT in the visualized right extremity.
[2024-04-22] MEDS ORDERED: ACET-2079 PO (12:54)
[2024-04-22] MEDS: ondanSETRON ODT 4MG TAB SL ONE (12:57)
[2024-04-22] MEDS ORDERED: GABA-1555 PO (12:57)
[2024-04-22 13:14] VITALS: BP 161/74; PULSE 78; RESP 18; TEMP 97.7; O2SAT 98
== END 2024-04-22 13:28 | disposition home or self-care (01) ==
LOC: EDH 11:11
DX: E11.40 Type 2 diabetes mellitus with diabetic neuropathy, unspecified (principal); E11.65 Type 2 diabetes mellitus with hyperglycemia; M79.661 Pain in right lower leg; E78.00 Pure hypercholesterolemia, unspecified; I10 Essential (primary) hypertension; Z79.4 Long term (current) use of insulin; Z79.51 Long term (current) use of inhaled steroids; Z79.899 Other long term (current) drug therapy; Z85.3 Personal history of malignant neoplasm of breast; Z88.1 Allergy status to other antibiotic agents
CPT/HCPCS: 36415; 80048; 85025; 93971; 99284

== ENCOUNTER → 2024-05-03 | Outpatient (CLI) | payer MEDICARE ==
[~2024-05-03] MED LIST changes: +DIATR MEGLU/DIATRIZOATE SODIUM 30 ML BOTTLE ONE; +GABA-1555 PO
--- NOTE | 2024-05-03 14:47 | HMCIMG ---
SM BOWEL SERIES REASON: CHRONIC IDIOPATHIC CONSTIPATION. COMPARISON: None TECHNIQUE: Small bowel series was performed. FINDINGS: Patient is status post gastrojejunostomy. There is no obstruction to the antegrade passage of contrast from mouth through cecum. Postop changes are seen. Mucosal fold pattern of the jejunum and ileum are unremarkable. Contrast reached the cecum in 2 hours. Post cholecystectomy changes are seen. IMPRESSION: No obstruction is seen. Post gastrojejunostomy changes. Postop changes are seen.
== END | disposition home or self-care (01) ==
LOC: RAH 08:38
PROVIDERS: ATTEND Surgery
DX: K59.04 Chronic idiopathic constipation (principal); Z98.890 Other specified postprocedural states; Z90.49 Acquired absence of other specified parts of digestive tract
CPT/HCPCS: 74250; Q9963

== ENCOUNTER 2024-12-01 06:32 | Emergency (ER) | payer MEDICARE ==
[~2024-12-01] VITALS: Ht 157.5 cm; Wt 54.4 kg
[~2024-12-01 06:32] MED LIST changes: -DIATR MEGLU/DIATRIZOATE SODIUM 30 ML BOTTLE ONE
--- NOTE | 2024-12-01 06:57 | ERN ---
General Chief Complaint: Dizzy/Light Headed Stated Complaint: DIZZINESS AND NAUSEA Time Seen by MD: 06:47 Source: patient History of Present Illness Initial Comments Patient is a 59-year-old female with diabetes who is on day three of therapy for a urinary tract infection. It is being treated with levofloxacin. She has had for the last two days increasing nausea vomiting and feeling lightheaded. Timing/Duration: 24 hours Allergies: Coded Allergies: ceftriaxone (Unverified Allergy, Unknown, HIVES, 04/22/24) shrimp (Unverified Allergy, Unknown, 03/26/16) Home Meds Active Scripts Gabapentin (Gabapentin) 800 Mg Tablet, 1 TAB PO TID for 10 Days, #30 TAB 0 Refills Prov:VIVIEN FRANKLIN NP 04/22/24 Famotidine (Pepcid) 20 Mg Tablet, 20 MG PO BID for 7 Days, #14 TAB Prov:CLAUDE VELASQUEZ 01/22/24 Ondansetron (Ondansetron Odt) 4 Mg Tab.rapdis, 4 MG PO BID for 7 Days, #14 TAB Prov:CLAUDE VELASQUEZ 01/22/24 Ketorolac Tromethamine (Ketorolac Tromethamine) 10 Mg Tablet, 10 MG PO BID for 5 Days, #10 TAB Prov:CLAUDE VELASQUEZ 01/22/24 Magnesium Citrate (Magnesium Citrate) 296 Ml Solution, 296 ML PO DAILY for Constipation for 30 Days, #1500 ML Prov:NORIS ORELLANA MD 11/08/23 Famotidine (Pepcid) 40 Mg Tablet, 40 MG PO DAILY for 10 Days, #10 TAB Prov:KEV CORNELIUS 07/01/23 Hydroxyzine HCl (Hydroxyzine HCl) 25 Mg Tablet, 25 MG PO BID for 5 Days, #10 TAB Prov:KEV CORNELIUS 07/01/23 Methylprednisolone (Medrol) 4 Mg Tab.ds.pk, 4 MG PO AD for 5 Days, #1 PACK Prov:KEV CORNELIUS 07/01/23 Reported Medications Insulin Detemir (Levemir) 100 Unit/Ml Vial, 12 UNIT SQ DAILY, VIAL 02/16/23 [Anastrazole] No Conflict Check, 1 MG PO DAILY 02/16/23 Famotidine (Famotidine) 40 Mg Tablet, 40 MG PO HS, TAB 02/16/23 Lactulose (Kristalose) 20 Gram Packet, 20 GM PO BID, PKT 02/16/23 Naloxegol Oxalate (Movantik) 25 Mg Tablet, 25 MG PO HS, TAB 02/16/23 Bisacodyl (Bisacodyl) 5 Mg Tablet.dr, 5 MG PO DAILY, TAB 02/16/23 [Diclofenac Sodium] No Conflict Check, 1 APPL TP 4-6 X DAILY 02/16/23 Budesonide/Formoterol Fumarate (Symbicort 160-4.5 Mcg Inhaler) 160 Mcg-4.5 Mcg/Actuation Hfa.aer.ad, 2 PUFF IH BID PRN for SHORTNESS OF BREATH 02/16/23 Albuterol Sulfate (Ventolin Hfa/Proventil Hfa/Proair Hfa) 90 Mcg Puff, 2 PUFF IH 4-6 X DAILY PRN for SHORTNESS OF BREATH, INHALER 02/16/23 Pantoprazole Sodium (Protonix) 40 Mg Ectab, 40 MG PO DAILY, TAB.EC 03/26/16 Past Medical History Past Medical History: Diabetes-Type II, Hypertension Medical History Other: BREAST CA Past Surgical History: Hysterectomy Surgical History Other: LOOP RECORDER Family History Family History: Negative Social History Social History: Negative Female( History) History: Not Applicable Constitutional: (-) chills, (-) diaphoresis, (-) fever, (-) malaise, (-) wea kness, (-) other documentation EENTM: (-) eye pain, (-) blurred vision, (-) tearing, (-) double vision, (-) ear pain, (-) ear discharge, (-) nose pain, (-) nose congestion, (-) throat pain, (-) Throat swelling, (-) mouth pain, (-) tooth pain, (-) mouth swelling, (-) other documentation Respiratory: (-) cough, (-) orthopnea, (-) short of breath, (-) stridor, (-) wheezing, (-) other documentation Cardiovascular: (-) chest pain, (-) edema, (-) palpitations, (-) syncope, (-) dyspnea on exertion, (-) other documentation Gastrointestinal/Abdominal: (+) nausea, (+) vomiting Genitourinary: (+) dysuria Musculoskeletal: (-) Neck pain, (-) back pain, (-) Flank Pain, (-) joint pain, (-) joint swelling, (-) muscle pain, (-) muscle stiffness, (-) gout, (-) other documentation Skin: (-) laceration, (-) contusion, (-) abrasion, (-) abscess, (-) rash, (-) change in color, (-) change in hair, (-) change in nails, (-) diaphoresis, (-) dryness, (-) other documentation Physical Exam General Appearance: (+) mild distress Orientation: (+) alert Head/Face Trauma: No Eye: bilateral eye normal inspection, bilateral eye PERRL, bilateral eye EOMI Ear, Nose, Throat: (+) hearing grossly normal, (+) normal ENT inspection, (+) moist mucous membraine Neck: (+) normal inspection, (+) supple, (+) full range of motion Respiratory: (+) chest non-tender, (+) lungs clear, (+) well ventilated Heart: (+) regular, (+) no gallop Vascular: (+) no edema, (+) normal peripheral pulse Gastrointestinal: (+) soft, (+) no organomegaly, (+) bowel sound present Results Laboratory and Microbiology Lab and Micro Result Laboratory Tests Test 12/01/24 07:04 12/01/24 07:07 Urine Color LIGHT-YELLOW (YELLOW) Urine Appearance CLEAR (CLEAR) Urine pH 7.0 (5.0-8.0) Urine Specific [place] 1.012 (1.001-1.031) Urine Protein NEGATIVE mg/dL (NEGATIVE) Urine Glucose (UA) NEGATIVE mg/dL (NEGATIVE) Urine Ketones NEGATIVE mg/dL (NEGATIVE) Urine Occult Blood NEGATIVE (NEGATIVE) Urine Nitrate NEGATIVE (NEGATIVE) Urine Bilirubin NEGATIVE mg/dL (NEGATIVE) Urine Urobilinogen 0.2 mg/dL (0.2-1.0) Urine Leukocyte Esterase 75 Tad/uL (NEGATIVE) H Urine RBC 2-5 /HPF (0-1) H Urine WBC 26-50 /HPF (0-1) H Urine Squamous Epithelial Cells RARE /HPF (0-2) Urine Bacteria None /HPF (None Seen) Urine HCG, Qualitative NEGATIVE (NEGATIVE) White Blood Count 4.8 K/uL (4.8-10.8) Red Blood Count 4.37 MIL/uL (4.00-5.50) Hemoglobin 13.2 g/dL (12.0-16.0) Hematocrit 40.7 % (36-48) Mean Corpuscular Volume 93.1 fL (79-99) Mean Corpuscular Hemoglobin 30.2 pg (27.0-33.0) Mean Corpuscular Hemoglobin Concent 32.4 g/dL (32.0-36.0) Red Cell Distribution Width 12.7 % (11.0-15.5) Platelet Count 212 K/uL (130-400) Mean Platelet Volume 9.8 fL (7.5-10.5) Immature Granulocyte % (Auto) 0.4 % (0-1) Neutrophils (%) (Auto) 65.8 % (40.0-77.0) Lymphocytes (%) (Auto) 21.8 % (21.0-51.0) Monocytes (%) (Auto) 7.4 % (3.0-13.0) Eosinophils (%) (Auto) 4.0 % (0.0-8.0) Basophils (%) (Auto) 0.6 % (0.0-5.0) Neutrophils # (Auto) 3.1 K/uL (1.8-7.7) Lymphocytes # (Auto) 1.0 K/uL (1.0-4.8) Monocytes # (Auto) 0.4 K/uL (0.1-1.0) Eosinophils # (Auto) 0.19 K/uL (0.00-0.70) Basophils # (Auto) 0.03 K/uL (0.00-0.20) Absolute Immature Granulocyte (auto 0.02 K/uL (0-1) Nucleated Red Blood Cells 0.0 % (0.0-0.19) Sodium Level 143 mmol/L (136-145) Potassium Level 4.2 mmol/L (3.5-5.1) Chloride Level 107 mmol/L (101-111) Carbon Dioxide Level 31 mmol/L (21-32) Blood Urea Nitrogen 17 mg/dL (7-18) Creatinine 0.6 mg/dL (0.5-1.0) Glomerular Filtration Rate Calc 103 mL/min (>90) Random Glucose 116 mg/dL (70-105) H Total Calcium 9.2 mg/dL (8.5-10.1) Troponin I High Sensitivity 8 ng/L (4-50) EKG/XRAY/US/CT/MRI CT Scan Comment [facility] [address] [place] [address] IMAGING REPORT Signed PATIENT: CARIDAD DAVIS MR#: [id number] : 1965 SEX: F AGE: 59 LOCATION: [facility] ORDER 4 STATUS: [facility] ER REPORT#: [id number] SERVICE 3 REASON: vertigo ORDERING PHYSICIAN: PAULINO ZAMARRIPA MD PROCEDURE: HEAD WO - CT HEAD/BRAIN W/O CONTRAST EXAM: CT Brain without IV contrast CLINICAL HISTORY: [facility] screening TECHNIQUE: Thin collimated axial CT images of the brain were obtained without intravenous contrast. Sagittal and coronal reformatted images were also submitted. COMPARISON: Prior CT brain dated April 16, 2019 FINDINGS: No acute intracranial abnormality is present. No evidence of acute infarction, intracranial hemorrhage, mass lesion, or extra-axial fluid collection. No hydrocephalus or midline shift. The cerebral ventricles, sulci, and cisterns are within normal limits for age. No abnormality is identified in the visualized orbits, paranasal sinuses, or calvarium. IMPRESSION: 1. No acute intracranial findings. /[place] DICTATED BY: GOGO CARRILLO Jr., MD DATE: 12/01/24 1033 ELECTRONICALLY SIGNED BY: GOGO CARRILLO Jr., MD DATE: 12/01/24 103 [place] MDM: Differential diagnosis: Dehydration, persistent UTI symptoms, cardiac disease, gastroenteritis, sinusitis Rationale: Tests considered and ordered secondary to shared decision making include: Previous outside records reviewed: Old ER visits. Risk of complication and/or morbidity or mortality of patient management: None Medications-Per medication reconciliation Need for hospitalization: Patient does meet criteria for hospitalization. Patient is a 59-year-old female coming in complaining of vertigo. Patient states he has a history of vertigo on physical exam tympanic membrane erythema. Patient also presented with a nasal turbinate swelling bilateral. Patient will be discharged in stable condition with a diagnosis of chronic vertigo with sinusitis. ED Course Orders Procedure Category Date Status Time Lactated Ringers PHA 12/01/24 Complete 1000ml (Lactated 06:47 12 Lead Ekg Tracing- EKG 12/01/24 Complete Technical 06:47 Basic Metabolic Panel LAB 12/01/24 Complete 06:47 Cbc With Differential LAB 12/01/24 Complete 06:47 ,Urine Test LAB 12/01/24 Complete 06:47 Urinalysis Profile LAB 12/01/24 Complete 06:47 Troponin I High LAB 12/01/24 Complete Sensitivity 06:57 12 Lead Ekg Tracing- EKG 12/01/24 Logged Technical 06:57 Meclizine Hcl 25 Mg PHA 12/01/24 Complete (Antivert 25 Mg) 08:00 Culture Urine ALFREDO 12/01/24 In Process 07:48 Meclizine Hcl 25 Mg PHA 12/01/24 Complete (Antivert 25 Mg) 07:46 Ondansetron Odt 4mg PHA 12/01/24 Complete Tab (Zofran 4mg Odt) 08:30 Ondansetron Odt 4mg PHA 12/01/24 Complete Tab (Zofran 4mg Odt) 08:20 Ct Head/Brain W/O CT 12/01/24 Resulted Contrast 08:24 Current Medications Medications (Trade) Dose Ordered Sig/Laurie Route PRN Reason Start Time Stop Time Status Last Admin Dose Admin Lactated Ringer's (Lactated Ringers 1000ml) 1,000 ml BOLUS STAT IV 12/01/24 06:47 12/01/24 06:50 DC 12/01/24 07:20 Meclizine HCl (ANTIvert 25 mg) 25 mg ONCE ONCE PO 12/01/24 08:00 12/01/24 08:02 DC 12/01/24 07:48 Meclizine HCl (ANTIvert 25 mg) 25 mg STK-MED ONCE .ROUTE 12/01/24 07:46 12/01/24 07:49 DC Ondansetron HCl (zoFRAN 4MG ODT) 4 mg ONCE ONCE SL 12/01/24 08:30 12/01/24 08:31 DC 12/01/24 08:24 Ondansetron HCl (zoFRAN 4MG ODT) 4 mg STK-MED ONCE .ROUTE 12/01/24 08:20 12/01/24 08:20 DC Vital Signs Date Time Temp Pulse Resp B/P (MAP) Pulse Ox O2 Delivery O2 Flow Rate FiO2 12/01/24 07:09 98.2 80 17 142/76 98 Room Air* 0 21 12/01/24 06:35 97.5 90 17 153/88 100 Room Air 0 DX & DISP Disposition: Discharge Departure Impression: Primary Impression: Chronic vertigo Additional Impression: Sinusitis Condition: Stable Scripts Meclizine HCl (Antivert) 25 Mg Tab.chew 25 MG PO BID PRN for DIZZINESS for 7 Days, #14 TAB.CHEW Prov: PAULINO ZAMARRIPA MD 12/01/24 Loratadine (Loratadine) 10 Mg Tablet 1 TAB PO DAILY for allergy symptoms for 30 Days, #30 TAB 0 Refills Prov: PAULINO ZAMARRIPA MD 12/01/24 Fluticasone Propionate (Flonase Nasal [place]) 50 Mcg/Actuation [place] 2 SPRAY NS DAILY, #16 GM 0 Refills Prov: PAULINO ZAMARRIPA MD 12/01/24 Additional Instructions: FOLLOW-UP WITH PRIMARY CARE PROVIDER IN 1 TO 2 DAYS. TAKE MEDICATIONS DIRECTED HERE IN THE EMERGENCY ROOM. OKAY TO CONTINUE HOME MEDICATIONS UNLESS OTHERWISE DISCUSSED DURING YOUR VISIT IN THE EMERGENCY ROOM TODAY. RETURN TO YOUR NEAREST EMERGENCY ROOM IF SYMPTOMS WORSEN OR IF THERE IS NO IMPROVEMENT. C ALL 911 IF YOU NEED IMMEDIATE ASSISTANCE. TAKE TYLENOL [id number] NEEDED AND IF NO CONTRAINDICATIONS ARE PRESENT. INCREASE ORAL HYDRATION. A WOUND CULTURE OR URINE CULTURE WAS ORDERED HERE IN THE EMERGENCY ROOM DEPARTMENT PLEASE FOLLOW-UP WITH PRIMARY CARE PROVIDER AND ADVISE THEM TO GET REPORTS FROM OUR FACILITY. IF YOU HAD ANY RAMU WRAP/SPLINTS THAT WERE APPLIED HERE, PLEASE DO NOT REMOVE THEM UNTIL YOU SEE YOUR PRIMARY CARE OR SPECIALTY. Referrals: Referrals: BLESSING PRIDE MD (PCP) YEVGENIY LIPSCOMB MD Time of Disposition: 09:38 GOSIA MARTINEZ MD Dec 01, 2024 06:57 PAULINO ZAMARRIPA MD Dec 01, 2024 09:39
--- NOTE | 2024-12-01 06:58 | EKG ---
[facility] Test Date: 2024-12-01 Test Time: 06:55:14 Pat Name: CARIDAD DAVIS Department: ED Room: Gender: F [employer]: [id number] : 1965 Requested By: GOSIA MARTINEZ Order Number: [id number] Reading MD: Dionisio Yanez Measurements Intervals [place] Rate: 72 P: 65 [place]: 149 QRS: 53 QRSD: 92 T: 60 QT: 408 QTc: 445 Interpretive Statements Sinus rhythm Low voltage, precordial leads Compared to ECG 04/16/2019 20:36:32 Low QRS voltage now present Electronically Signed On 12-01-2024 10:52:59 CDT by Dionisio Yanez Please click the below link to view image of tracing.
--- NOTE | 2024-12-01 07:09 | NUR ---
REPORT GIVEN TO MORELIA WADE AT THIS TIME
[2024-12-01] MEDS: LACTATED RINGERS 1000ML IV STA (07:20)
[2024-12-01 07:21] LABS: IMMATURE GRANULOCYTE ABSOLUTE 0.02 K/uL (0-1); NUCLEATED RED BLOOD CELLS 0.0 % (0.0-0.19); PLATELET COUNT (AUTO) 212 K/uL (130-400); RED BLOOD CELL COUNT(AUTO) 4.37 MIL/uL (4.00-5.50); RED CELL DISTRIBUTION WIDTH 12.7 % (11.0-15.5); WHITE BLOOD COUNT (AUTO) 4.8 K/uL (4.8-10.8)
[2024-12-01 07:28] LABS: CREATININE 0.6 mg/dL (0.5-1.0); GLOMERULAR FILTR. RATE CALC 103.0 mL/min (>90); GLUCOSE,RANDOM 116.0 mg/dL (70-105); SODIUM SERUM 143.0 mmol/L (136-145); UREA NITROGEN, BLOOD 17.0 mg/dL (7-18)
[2024-12-01 07:33] LABS: APPEARANCE,URINE CLEAR (CLEAR); GLUCOSE, URINE (UA) NEGATIVE (NEGATIVE); LEUKOCYTE ESTERASE ,URINE 75 Leu/uL (NEGATIVE); NITRATE,URINE NEGATIVE (NEGATIVE); OCCULT BLOOD,URINE NEGATIVE (NEGATIVE)
[2024-12-01 07:44] LABS: ADD UA MICROSCOPIC YES; HCG,QUALITATIVE URINE NEGATIVE (NEGATIVE)
[2024-12-01 07:52] LABS: SQUAMOUS EPITHELIAL CELL,UR RARE /HPF (0-2)
--- NOTE | 2024-12-01 09:34 | HMCIMG ---
EXAM: CT Brain without IV contrast CLINICAL HISTORY: [employer] screening TECHNIQUE: Thin collimated axial CT images of the brain were obtained without intravenous contrast. Sagittal and coronal reformatted images were also submitted. COMPARISON: Prior CT brain dated April 16, 2019 FINDINGS: No acute intracranial abnormality is present. No evidence of acute infarction, intracranial hemorrhage, mass lesion, or extra-axial fluid collection. No hydrocephalus or midline shift. The cerebral ventricles, sulci, and cisterns are within normal limits for age. No abnormality is identified in the visualized orbits, paranasal sinuses, or calvarium. IMPRESSION: 1. No acute intracranial findings. /[place]
[2024-12-01 09:38] VITALS: BP 151/64; PULSE 64; RESP 16; TEMP 97.6; O2SAT 100
[2024-12-01] MEDS ORDERED: LORA10TA7 PO (09:39)
[2024-12-01] MEDS ORDERED: FLUT16H NS (09:39)
[2024-12-01] MEDS ORDERED: MECL-262 PO (09:39)
== END 2024-12-01 09:41 | disposition home or self-care (01) ==
LOC: EDH 06:32
DX: R42 Dizziness and giddiness (principal); J32.9 Chronic sinusitis, unspecified; E11.9 Type 2 diabetes mellitus without complications; I10 Essential (primary) hypertension; Z79.4 Long term (current) use of insulin; Z79.51 Long term (current) use of inhaled steroids; Z79.899 Other long term (current) drug therapy; Z85.3 Personal history of malignant neoplasm of breast; Z88.1 Allergy status to other antibiotic agents; Z90.710 Acquired absence of both cervix and uterus
CPT/HCPCS: 99284; 96360; 70450; 84484; 80048; 85025; 87086; 81001; 81025; 36415; 93005; J7120

== ENCOUNTER 2025-04-17 23:03 | Emergency (ER) | payer MEDICARE ==
[~2025-04-17] VITALS: Ht 157.5 cm; Wt 49.9 kg
[~2025-04-17 23:03] MED LIST changes: +FLUT16H NS; +LORA10TA7 PO; +MECL-262 PO
[2025-04-18 00:01] LABS: IMMATURE GRANULOCYTE ABSOLUTE 0.02 K/uL (0-1); NUCLEATED RED BLOOD CELLS 0.0 % (0.0-0.19); PLATELET COUNT (AUTO) 192 K/uL (130-400); RED BLOOD CELL COUNT(AUTO) 3.79 MIL/uL (4.00-5.50); RED CELL DISTRIBUTION WIDTH 12.7 % (11.0-15.5); WHITE BLOOD COUNT (AUTO) 5.5 K/uL (4.8-10.8)
[2025-04-18 00:11] LABS: CREATININE 0.9 mg/dL (0.5-1.0); GLOMERULAR FILTR. RATE CALC 74.0 mL/min (>90); GLUCOSE,RANDOM 89.0 mg/dL (70-105); SODIUM SERUM 142.0 mmol/L (136-145); UREA NITROGEN, BLOOD 24.0 mg/dL (7-18)
[2025-04-18 00:16] LABS: CREATINE KINASE, TOTAL 76.0 U/L (21-232)
[2025-04-18] MEDS: ORPHENADRINE 60MG/2ML IVP ONE (01:07)
[2025-04-18] MEDS: TRIAMCINOLONE ACETONIDE 40 MG/ML 1ML VIAL IM ONE (01:07)
[2025-04-18] MEDS: MAGNESIUM 2GM PREMIX 50ML 50 ML IV SCH (01:08)
--- NOTE | 2025-04-18 01:13 | ERN ---
General Chief Complaint: Lower Extremity Pain/Injury Stated Complaint: LEFT LEG PAIN Time Seen by MD: 23:15 Source: patient History of Present Illness Initial Comments 59-year-old female with a history of diabetes and hypertension had a spontaneous cramp to her left leg affecting both the calf and the anterior tibialis muscles. Her foot is rotated in words with the the anterior tibialis tendon taut and tenting the skin. She can not walk because of the pain. Timing/Duration: 1-3 hours Severity: severe Allergies: Coded Allergies: cefdinir (Unverified Allergy, Unknown, 04/17/25) ceftriaxone (Unverified Allergy, Unknown, HIVES, 04/22/24) shrimp (Unverified Allergy, Unknown, 03/26/16) Home Meds Active Scripts Meclizine HCl (Antivert) 25 Mg Tab.chew, 25 MG PO BID PRN for DIZZINESS for 7 Days, #14 TAB.CHEW Prov:PAULINO ZAMARRIPA MD 12/01/24 Loratadine (Loratadine) 10 Mg Tablet, 1 TAB PO DAILY for allergy symptoms for 30 Days, #30 TAB 0 Refills Prov:PAULINO ZAMARRIPA MD 12/01/24 Fluticasone Propionate (Flonase Nasal [place]) 50 Mcg/Actuation [place], 2 SPRAY NS DAILY, #16 GM 0 Refills Prov:PAULINO ZAMARRIPA MD 12/01/24 Gabapentin (Gabapentin) 800 Mg Tablet, 1 TAB PO TID for 10 Days, #30 TAB 0 Refills Prov:VIVIEN FRANKLIN 04/22/24 Famotidine (Pepcid) 20 Mg Tablet, 20 MG PO BID for 7 Days, #14 TAB Prov:CLAUDE VELASQUEZ 01/22/24 Ondansetron (Ondansetron Odt) 4 Mg Tab.rapdis, 4 MG PO BID for 7 Days, #14 TAB Prov:CLAUDE VELASQUEZ 01/22/24 Ketorolac Tromethamine (Ketorolac Tromethamine) 10 Mg Tablet, 10 MG PO BID for 5 Days, #10 TAB Prov:CLAUDE VELASQUEZ 01/22/24 Magnesium Citrate (Magnesium Citrate) 296 Ml Solution, 296 ML PO DAILY for Constipation for 30 Days, #1500 ML Prov:NORIS ORELLANA MD 11/08/23 Famotidine (Pepcid) 40 Mg Tablet, 40 MG PO DAILY for 10 Days, #10 TAB Prov:KEV CORNELIUS PA 07/01/23 Hydroxyzine HCl (Hydroxyzine HCl) 25 Mg Tablet, 25 MG PO BID for 5 Days, #10 TAB Prov:KEV CORNELIUS PA 07/01/23 Methylprednisolone (Medrol) 4 Mg Tab.ds.pk, 4 MG PO AD for 5 Days, #1 PACK Prov:KEV CORNELIUS PA 07/01/23 Reported Medications Insulin Detemir (Levemir) 100 Unit/Ml Vial, 12 UNIT SQ DAILY, VIAL 02/16/23 [Anastrazole] No Conflict Check, 1 MG PO DAILY 02/16/23 Famotidine (Famotidine) 40 Mg Tablet, 40 MG PO HS, TAB 02/16/23 Lactulose (Kristalose) 20 Gram Packet, 20 GM PO BID, PKT 02/16/23 Naloxegol Oxalate (Movantik) 25 Mg Tablet, 25 MG PO HS, TAB 02/16/23 Bisacodyl (Bisacodyl) 5 Mg Tablet.dr, 5 MG PO DAILY, TAB 02/16/23 [Diclofenac Sodium] No Conflict Check, 1 APPL TP 4-6 X DAILY 02/16/23 Budesonide/Formoterol Fumarate (Symbicort 160-4.5 Mcg Inhaler) 160 Mcg-4.5 Mcg/Actuation Hfa.aer.ad, 2 PUFF IH BID PRN for SHORTNESS OF BREATH 02/16/23 Albuterol Sulfate (Ventolin Hfa/Proventil Hfa/Proair Hfa) 90 Mcg Puff, 2 PUFF IH 4-6 X DAILY PRN for SHORTNESS OF BREATH, INHALER 02/16/23 Pantoprazole Sodium (Protonix) 40 Mg Ectab, 40 MG PO DAILY, TAB.EC 03/26/16 Past Medical History Past Medical History: Diabetes-Type II, Hypertension Medical History Other: BREAST CA, SCOLIOSIS, SJOGRENS Past Surgical History: Hysterectomy Surgical History Other: LOOP RECORDER Family History Family History: Negative Social History Social History: Negative Female( History) History: Not Applicable ROS Dictation Review of systems is negative beyond her left leg cramping. Physical Exam General Appearance: (+) moderate distress Orientation: (+) alert, (+) oriented x 3 Head/Face Trauma: No Eye: bilateral eye normal inspection, bilateral eye PERRL, bilateral eye EOMI Ear, Nose, Throat: (+) hearing grossly normal, (+) normal ENT inspection, (+) moist mucous membraine Neck: (+) normal inspection, (+) supple, (+) full range of motion Respiratory: (+) chest non-tender, (+) lungs clear, (+) well ventilated Heart: (+) regular, (+) no gallop Vascular: (+) no edema, (+) normal peripheral pulse Gastrointestinal: (+) soft, (+) bowel sound present Extremities Comment Left leg is tender with hard contracted gastrocnemius muscle as well as hard contracted anterior tibialis muscle. Patient's anterior tibialis tendon is taut like a cable and tenting the skin above it and easily visible. Results Laboratory and Microbiology Lab and Micro Result Laboratory Tests Test 04/17/25 23:54 White Blood Count 5.5 K/uL (4.8-10.8) Red Blood Count 3.79 MIL/uL (4.00-5.50) L Hemoglobin 11.5 g/dL (12.0-16.0) L Hematocrit 35.8 % (36-48) L Mean Corpuscular Volume 94.5 fL (79-99) Mean Corpuscular Hemoglobin 30.3 pg (27.0-33.0) Mean Corpuscular Hemoglobin Concent 32.1 g/dL (32.0-36.0) Red Cell Distribution Width 12.7 % (11.0-15.5) Platelet Count 192 K/uL (130-400) Mean Platelet Volume 9.6 fL (7.5-10.5) Immature Granulocyte % (Auto) 0.4 % (0-1) Neutrophils (%) (Auto) 53.2 % (40.0-77.0) Lymphocytes (%) (Auto) 31.2 % (21.0-51.0) Monocytes (%) (Auto) 10.6 % (3.0-13.0) Eosinophils (%) (Auto) 4.0 % (0.0-8.0) Basophils (%) (Auto) 0.6 % (0.0-5.0) Neutrophils # (Auto) 2.9 K/uL (1.8-7.7) Lymphocytes # (Auto) 1.7 K/uL (1.0-4.8) Monocytes # (Auto) 0.6 K/uL (0.1-1.0) Eosinophils # (Auto) 0.22 K/uL (0.00-0.70) Basophils # (Auto) 0.03 K/uL (0.00-0.20) Absolute Immature Granulocyte (auto 0.02 K/uL (0-1) Nucleated Red Blood Cells 0.0 % (0.0-0.19) Sodium Level 142 mmol/L (136-145) Potassium Level 4.7 mmol/L (3.5-5.1) Chloride Level 109 mmol/L (101-111) Carbon Dioxide Level 29 mmol/L (21-32) Blood Urea Nitrogen 24 mg/dL (7-18) H Creatinine 0.9 mg/dL (0.5-1.0) Glomerular Filtration Rate Calc 74 mL/min (>90) Random Glucose 89 mg/dL (70-105) Total Calcium 8.8 mg/dL (8.5-10.1) Magnesium Level 2.30 mg/dL (1.80-2.40) Total Creatine Kinase 76 U/L (21-232) # MDM MDM: Differential diagnosis: Dehydration, hypocalcemia, hypomagnesemia, hypokalemia, respiratory alkalosis, hypothyroidism, stress Rationale: Tests considered and ordered secondary to shared decision making include: Previous outside records reviewed: Old ER visits. Risk of complication and/or morbidity or mortality of patient management: None Medications-Per medication reconciliation Need for hospitalization: Patient does meet criteria for hospitalization. Need for emergency major/minor surgery: No There are no social concerns with this patient. Prescription drug management Prescriptions will include symptomatic care Patient's prior external medical records from other ER visits were reviewed by me as indicated. Prior testing and results from previous visits were reviewed. Prior tests were taken into account with medical decision making and resource utilization, independent historian/historians were used to obtain complete medical history. I independently interpreted the test that were performed, results were reviewed by me and considered findings on radiology if ordered. Patient's electrolytes are normal with a normal potassium normal calcium and a normal magnesium. I did give her Norflex as well as Toradol and Kenalog and a L of fluid. The patient slept comfortably and then I was able to move her foot up and down her cramp has been relaxed. ED Course Orders Procedure Category Date Status Time Basic Metabolic Panel LAB 04/17/25 Complete 23:41 Cbc With Differential LAB 04/17/25 Complete 23:41 Magnesium LAB 04/17/25 Complete 23:41 Urinalysis Profile LAB 04/17/25 Logged 23:41 Orphenadrine Citrate PHA 04/18/25 Complete (Norflex) 00:00 Triamcinolone Acet PHA 04/18/25 Complete 40mg/Ml 1ml (Kenalog 00:00 Ketorolac PHA 04/18/25 Complete Tromethamine 30mg/Ml 00:00 Magnesium 2gm Premix PHA 04/18/25 In Process 50ml (Magnesium 2gm 00:00 Creatine Kinase, Total LAB 04/17/25 Complete 23:41 Current Medications Medications (Trade) Dose Ordered Sig/Laurie Route PRN Reason Start Time Stop Time Status Last Admin Dose Admin Ketorolac Tromethamine (toRADol) 30 mg ONCE ONCE IVP 04/18/25 00:00 04/18/25 00:01 DC 04/18/25 01:07 Magnesium Sulfate 50 ml @ 0 mls/hr PROTOCOL IV 04/18/25 00:00 05/18/25 00:00 04/18/25 01:08 Orphenadrine Citrate (Norflex) 60 mg ONCE ONCE IVP 04/18/25 00:00 04/18/25 00:01 DC 04/18/25 01:07 Triamcinolone Acetonide (Kenalog 40) 40 mg ONCE ONCE IM 04/18/25 00:00 04/18/25 00:01 DC 04/18/25 01:07 Vital Signs Date Time Temp Pulse Resp B/P (MAP) Pulse Ox O2 Delivery O2 Flow Rate FiO2 04/17/25 23:30 98.1 87 18 187/71 98 Room Air* 0 21 04/17/25 23:06 98.1 82 16 171/85 99 Room Air 0 DX & DISP Disposition: Discharge Departure Impression: Primary Impression: Muscle cramp, nocturnal Condition: Stable Additional Instructions: You have a muscle cramp. It was relieved with a muscle relaxant and pain control and steroids. Your electrolytes are normal. Muscle cramps at night due happen as we age the cause of them is not clear. Medical journals talk about hormonal changes it is not obvious why they happen, especially as we get older. I recommend you stay hydrated drink enough fluids so that your urine runs clear at least once a day. You can take [id number] magnesium tablets to help prevent them. Referrals: BLESSING PRIDE MD (PCP) GOSIA MARTINEZ MD Apr 18, 2025 01:13
[2025-04-18 03:01] VITALS: BP 162/74; PULSE 82; RESP 18; TEMP 98; O2SAT 98
== END 2025-04-18 03:06 | disposition home or self-care (01) ==
LOC: EDH 23:03
DX: R25.2 Cramp and spasm (principal); M79.605 Pain in left leg; E11.9 Type 2 diabetes mellitus without complications; I10 Essential (primary) hypertension; Z88.1 Allergy status to other antibiotic agents; Z91.013 Allergy to seafood; Z79.899 Other long term (current) drug therapy; Z79.51 Long term (current) use of inhaled steroids; Z79.4 Long term (current) use of insulin; Z90.710 Acquired absence of both cervix and uterus; Z85.3 Personal history of malignant neoplasm of breast
CPT/HCPCS: 99284; 82550; 83735; 80048; 85025; 36415; 96365; 96375; 96366; 96372; J1885; J3475; J3301; J2360